=== PATIENT | male | born 1965 | race Caucasian/White ===

== ENCOUNTER 2018-11-01 18:56 | Observation (INO) | payer BC, OTHER ==
[2018-11-01 19:25] VITALS: BMI 38.5
--- NOTE | 2018-11-01 19:27 | PDOC ---
Rapid Medical Evaluation Chief Complaint: Alcohol intoxication Time Seen by Provider: 11/01/18 19:25 Medical Evaluation: Vital Signs Temp Pulse Resp BP Pulse Ox 97.5 F L 112 H 20 181/107 H 98 11/01/18 19:22 11/01/18 19:22 11/01/18 19:22 11/01/18 19:22 11/01/18 19:22 11/01/18 19:25 Pt c/o: etoh intox,wants detox, hx htn on no meds Pt on brief exam: elevated bp, intoxicated, verbally abusive Pt ordered for: iv , comp comp, mag, lipase, alcohol, ua, drug tox Pt to proceed to the ED Discharge Disposition - Diagnosis Alcohol abuse - Referrals - Patient Instructions - Post Discharge Activity
[2018-11-01] MEDS ORDERED: LORazepam 1 MG TABLET PO ONE (19:53)
--- NOTE | 2018-11-01 20:02 | PDOC ---
History of Present Illness - General Chief Complaint: Alcohol intoxication Stated Complaint: DETOX Time Seen by Provider: 11/01/18 19:25 History Source: Patient Exam Limitations: No Limitations - History of Present Illness Initial Comments: 11/01/18 19:52 53 year old man with a history chronic, back stanford pain, htn, HLD, gout possible schizophrenia and bipolar disorder and thought to be intoxicated who presents with sister from home, who reported to her that he wanted to go to detox. The patient was released from [facility] this AM, reports he drank alcohol and used marijuana and called his sister. The patient's sister is unsure what his usual medications are and does not live with the patient. She reports that the patient has been acting erratically for 2-3 months. No further history is provided. The patient is verbally abusive, spitting and not engaging in conversation. Is unable to endorse hallucinations, suicidal or homocidal ideation. Prior on and off substance abuse including cocaine. called for collateral, however does know patient's medical history and recently put a restraining order on the patient, but will bring medications to the patient's sister. Meds: venlafaxine. divalproex, d-amphetamine, doxepin, quetiapine PMHX: as in HPI PSHX: splenectomy Past History - Past Medical History Allergies/Adverse Reactions: Allergies Allergy/AdvReac Type Severity Reaction Status Date / Time No Known Allergies Allergy Verified 11/01/18 20:25 Home Medications: Ambulatory Orders NK [No Known Home Medication] 11/01/18 - Suicide/Smoking/Psychosocial Hx Smoking History: Unknown if ever smoked Hx Alcohol Use: Yes (Daily) Drug/Substance Use Hx: Yes (cocaine) Review of Systems - Review of Systems Able to Perform ROS?: Yes Is the patient limited Setswana proficient: No Constitutional: No: Chills, Diaphoresis, Fever HEENTM: No: Blurred Vision, Tinnitus Respiratory: No: Cough, Orthopnea, Shortness of Breath Cardiac (ROS): No: Chest Pain, Lightheadedness, Palpitations, Syncope *Physical Exam - Vital Signs Last Vital Signs Temp Pulse Resp BP Pulse Ox 97.5 F L 112 H 20 181/107 H 98 11/01/18 19:22 11/01/18 19:22 11/01/18 19:22 11/01/18 19:22 11/01/18 19:22 - Physical Exam Comments: 11/01/18 23:19 GENERAL: agitated, verbally abuse, no obvious signs of trauma, exam limited 2/ safety concern HEAD: normocephalic, atraumatic EYES: EOMI, sclera anicteric, conjunctiva clear ENT: oropharynx clear without exudates. Moist mucosa NECK: Normal ROM, supple EXTREMITIES : Normal inspection, Normal range of motion, no edema. No clubbing or cyanosis. NEUROLOGICAL: Cranial nerves II through XII grossly intact. Normal speech, no focal sensorimotor deficits SKIN: Warm, Dry, normal turgor, no rashes or lesions noted Moderate Sedation - Procedure Monitoring Vital Signs: Procedure Monitoring Vital Signs Temperature 97.5 F L 11/01/18 19:22 Pulse Rate 112 H 11/01/18 19:22 Respiratory Rate 20 11/01/18 19:22 Blood Pressure 181/107 H 11/01/18 19:22 O2 Sat by Pulse Oximetry (%) 98 11/01/18 19:22 ED Treatment Course - LABORATORY CBC & Chemistry Diagram: 11/01/18 22:07 11/01/18 22:07 Medical Decision Making - Medical Decision Making 11/01/18 23:20 53 year old man with a history htn, HLD, gout possible schizophrenia and bipolar disorder and thought to be intoxicated who presents with sister from home, who reported to her that he wanted to go to detox. The patient was released from [facility] this AM, reports he drank alcohol and used marijuana and called his sister. The patient's sister is unsure what his usual medications are and does not live with the patient. She reports that the patient has been acting erratically for 2-3 months. No further history is provided. The patient is verbally abusive, spitting and not engaging in conversation. Is unable to endorse hallucinations, suicidal or homocidal ideation. ED Course: consider alcohol intox vs substance abuse vs acute psychosis Patient verbally abusive and knocking down hospital supplies Psychiatry contacted, Dr. Cevallos, pending call back ativan 2 given without effect benadryl 50, haldol 5 4 point restraints placed 11/01/18 23:29 blood alcohol 177, likely patient with psychotic episode underlying 11/01/18 23:44 will dose quetiapine home meds Likely the patient need observation admission until psychiatry can evaluate patient. Needs 1:1 and repeat dosing for agitation. 11/02/18 01:57 Patient signed out to resident Dr. Jones *DC/Admit/Observation/Transfer Diagnosis at time of Disposition: Alcohol abuse, Psychosis - Discharge Dispostion Condition at time of disposition: Stable Decision to Admit order: Yes - Referrals Referrals: Brit Russell MD [Primary Care Provider] - - Patient Instructions - Post Discharge Activity
[2018-11-01] MEDS ORDERED: LORazepam 2 MG/ML SDV VIAL ONE (20:25)
[2018-11-01] MEDS ORDERED: HALOPERIDOL LACTATE 5 MG/ML IM ONE (20:51)
[2018-11-01] MEDS ORDERED: HALOPERIDOL LACTATE 5 MG/ML ONE (21:20)
[2018-11-01 22:38] LABS: BASO % 0.8 % (0-2.0); EOS % 0.5 % (0-4.5); HEMATOCRIT 39.8 % (35.4-49); HEMOGLOBIN 13.6 GM/dL (11.7-16.9); LYMPH % 37.1 % (8-40); MCH 31.6 pg (25.7-33.7); MCHC 34.1 g/dl (32.0-35.9); MEAN CELL VOLUME 92.7 fl (80-96); MEAN PLT VOLUME 8.4 fl (7.5-11.1); MONO % 7.1 % (3.8-10.2); NEUT % 54.5 % (42.8-82.8); PLATELET COUNT 260 K/MM3 (134-434); RBC 4.29 M/mm3 (4.00-5.60); RDW 14.7 % (11.9-15.9); WHITE BLOOD COUNT 8.9 K/mm3 (4.0-10.0)
--- NOTE | 2018-11-01 23:06 | PDOC ---
Attending Attestation - HPI HPI: 11/01/18 23:10 The patient is a 53 year old male with a PMH of schizophrenia, bipolar, gout, HTN, and HLD presents to the ER with increased agitation over the past 2 months. As per the sister at bedside, the patient was released from [facility] this morning and admits to EtOH and marijuana use this morning. Patient is not answering questions appropriately in the ER and is not providing further information. <Heidi Pope - Last Filed: 11/01/18 23:10> - Resident Resident Name: Naina Sims - ED Attending Attestation I have performed the following: I have examined & evaluated the patient, The case was reviewed & discussed with the resident, I agree w/resident's findings & plan, Exceptions are as noted - Physicial Exam PE: 11/02/18 01:07 pt awake, agitated, verbally and physically abusive; spitting at staff nc, atr pupils: dialted, reactive, eomi mmm neck is supple cta rrr abd-soft, nt, + luq scar (well healed) no extr edema/deform - Medical Decision Making 11/02/18 01:09 pt is an agitated 53 y/o male with hx/o Polysubstance abuse, schizophrenia, bipolar disorder who is noncompliant with his medication regimen presents to the ER with worsening agitation over the past several weeks to months. Patient was recently released from [facility]. Patient's psychiatrist refuses to see the patient any longer due to verbal insults. In the ER, patient is acutely agitated , violent and verbally abusive to staff, spitting at the nurses and security staff. Attempts at verbal intervention failed and patient required chemical sedation with Haldol, Ativan and Benadryl. EKG revealed no evidence of acute ischemia. CBC/CMP within normal limit. Awaiting drug screen. Will consult psychiatry. Will place in ED opts currently. <Clark Duff - Last Filed: 11/02/18 01:14>
[2018-11-01 23:11] LABS: ALBUMIN 3.4 g/dl (3.4-5.0); ALK PHOS 78 U/L (45-117); ANION GAP 8 MMOL/L (8-16); BILIRUBIN,TOTAL 0.5 mg/dL (0.2-1); BLOOD UREA NITROGEN 9 mg/dL (7-18); CALCIUM 8.6 mg/dL (8.5-10.1); CHLORIDE 101 mmol/L (98-107); CO2 27 mmol/L (21-32); CREATININE 0.7 mg/dL (0.55-1.3); GLUCOSE,RANDOM 98 mg/dL (74-106); LIPASE 120 U/L (73-393); POTASSIUM 3.3 mmol/L (3.5-5.1); SGOT/AST 39 U/L (15-37); SGPT/ALT 31 U/L (13-61); SODIUM 136 mmol/L (136-145)
[2018-11-01] MEDS ORDERED: QUEtiapine FUMARATE 200 MG TABLET PO ONE (23:35)
[2018-11-01] MEDS ORDERED: QUEtiapine FUMARATE 100 MG TABLET (FP) PO ONE (23:45)
[2018-11-02] MEDS ORDERED: QUEtiapine FUMARATE 100 MG TABLET (FP) ONE (00:10)
[2018-11-02 00:46] LABS: URINE APPEARANCE SLCLOUDY; URINE BILIRUBIN NEGATIVE (<2.0 mg/dL); URINE COLOR YELLOW; URINE GLUCOSE (UA) NEGATIVE (NEGATIVE); URINE KETONE NEGATIVE (NEGATIVE); URINE LEUK ESTERASE NEGATIVE (NEGATIVE); URINE NITRITE NEGATIVE (NEGATIVE); URINE PROTEIN 1+ (NEGATIVE); URINE UROBILINOGEN NEGATIVE mg/dL (0.2-1.0)
[2018-11-02 01:07] LABS: URINE HYALINE CAST 4 /lpf; URINE MUCUS RARE
[2018-11-02] MEDS ORDERED: FOLIC ACID INJECTION - 1 MG, THIAMINE HCL 100 MG, MULTIVIT INJECTION ADULT 10 ML in SOD... IVPB ONE (01:31)
[2018-11-02] MEDS ORDERED: chlordiazePOXIDE HCL 25 MG CAPSULE PO PRN (01:31)
--- NOTE | 2018-11-02 01:34 | HP ---
CHIEF COMPLAINT: brought in by sister for combative behavior PCP: Unknown HISTORY OF PRESENT ILLNESS: 53M w/ pmhx of HTN, HLD, gout, multiple unspecified psychiatric illnesses was brought to the ED by his sister due to worsening combative, aggressive behavior. Upon arrival, pt was seen aggressive necessitating 4 point restraints as well as restraints by multiple people. Per his sister, pt was being held in retirement for 1.5 days after his had called the police on him due to his worsening aggressive and abusive behavior. As a result, the had obtained a restraining order against the patient. Complete history was obtained by pt's sister as pt was sedated upon exam. 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 He currently lives in a mother/ daughter home with his and kids, as well as both of his parents, however because of the restraining order, he was unable to return home after leaving retirement. Pt has been on multiple psychiatric medications (bags of pill bottles brought in by his ), but seems to be non-compliant with all of his medications. Of note, he has been to 3 different psychiatrists in the past with no improvement due to his non-compliance. He also has a history of alcohol, cocaine, marijuana, and opioid abuse. ER course was notable for: (1) K+ 3.3, U/A 1+ Pro, Utox +Benzos (2) Ativan 2 mg IM, Benadryl 50 mg IM, Haldol 5 mg IM, Seroquel 200 mg PO, Psych consult (3) Recent Travel: Denies PAST MEDICAL HISTORY: HTN HLD Gout ? Schizophrenia ? Bipolar d/o ? Atrial fibrillation PAST SURGICAL HISTORY: Splenectomy Social History: Smoking: Denies Alcohol: binge drinker Drugs: uses cocaine, marijuana Family History: Denies Allergies No Known Allergies Allergy (Verified 11/01/18 20:25) HOME MEDICATIONS: Home Medications Medication Instructions Recorded NK [No Known Home Medication] 11/01/18 REVIEW OF SYSTEMS Unable to obtain PHYSICAL EXAMINATION Vital Signs - 24 hr 11/01/18 19:22 Temperature 97.5 F L Pulse Rate 112 H Respiratory 20 Rate Blood Pressure 181/107 H O2 Sat by Pulse 98 Oximetry (%) Unable to obtain. Laboratory Results - last 24 hr 11/01/18 11/01/18 11/01/18 22:07 22:07 22:07 WBC 8.9 RBC 4.29 Hgb 13.6 Hct 39.8 MCV 92.7 MCH 31.6 MCHC 34.1 RDW 14.7 Plt Count 260 MPV 8.4 Absolute Neuts (auto) 4.9 Neutrophils % 54.5 Lymphocytes % 37.1 Monocytes % 7.1 Eosinophils % 0.5 Basophils % 0.8 Nucleated RBC % 0 Sodium 136 Potassium 3.3 L Chloride 101 Carbon Dioxide 27 Anion Gap 8 BUN 9 Creatinine 0.7 Creat Clearance w eGFR > 60 Random Glucose 98 Calcium 8.6 Total Bilirubin 0.5 AST 39 H ALT 31 Alkaline Phosphatase 78 Total Protein 7.0 Albumin 3.4 Lipase 120 Urine Color Urine Appearance Urine pH Ur Specific [place] Urine Protein Urine Glucose (UA) Urine Ketones Urine Blood Urine Nitrite Urine Bilirubin Urine Urobilinogen Ur Leukocyte Esterase Urine WBC (Auto) Urine RBC (Auto) Hyaline Casts Urine Mucus Salicylates < 1.7 L Cancelled Acetaminophen < 2.0 L Cancelled Alcohol, Quantitative 177.3 H 11/01/18 23:50 WBC RBC Hgb Hct MCV MCH MCHC RDW Plt Count MPV Absolute Neuts (auto) Neutrophils % Lymphocytes % Monocytes % Eosinophils % Basophils % Nucleated RBC % Sodium Potassium Chloride Carbon Dioxide Anion Gap BUN Creatinine Creat Clearance w eGFR Random Glucose Calcium Total Bilirubin AST ALT Alkaline Phosphatase Total Protein Albumin Lipase Urine Color Yellow Urine Appearance Slcloudy Urine pH 6.0 Ur Specific [place] 1.011 Urine Protein 1+ H Urine Glucose (UA) Negative Urine Ketones Negative Urine Blood Negative Urine Nitrite Negative Urine Bilirubin Negative Urine Urobilinogen Negative Ur Leukocyte Esterase Negative Urine WBC (Auto) 1 Urine RBC (Auto) 5 Hyaline Casts 4 Urine Mucus Rare Salicylates Acetaminophen Alcohol, Quantitative CONSULT Psych- Dr. Cevallos ASSESSMENT/PLAN: 53M w/ pmhx of HTN, HLD, gout, ? multiple psychiatric illnesses presented to the ED with aggressive behavior, evaluated for acute psychosis. #Acute psychosis; 2/2 alcohol intoxication with underlying multiple psychiatric illnesses -Ativan, Benadryl, Haldol, Seroquel given in ED -Utox +Alc 177 -4 point restraints -Psych consult ordered; await recs #Hypokalemia; Initial 3.3 -Banana bag ordered -replete PRN; recheck BMP #Hx of Alcohol abuse; Alc level 177.3 -Ativan 2 Q4H PRN given for acute withdrawal -monitor for signs of alcohol withdrawal #Uncontrolled HTN; may be 2/2 to acute psychotic episode, with extreme agitation as patient is not on anti-hypertensive meds -Will recheck once stable and treat accordingly if BP remains elevated #Obesity -Weight loss counseling #Ppx -Lovenox 40 mg SQ QD #FEN -banana bag -recheck lytes in AM (K+) -Regular diet dispo -full code -obs Visit type - Emergency Visit Emergency Visit: Yes ED Registration Date: 11/02/18 Care time: The patient presented to the Emergency Department on the above date and was hospitalized for further evaluation of their emergent condition. - New Patient This patient is new to me today: Yes Date on this admission: 11/02/18 - Critical Care Critical Care patient: No
[2018-11-02 03:39] LABS: COCAINE, UR NEGATIVE ng/ml (CUTOFF=300); OPIATES, URI NEGATIVE ng/ml (CUTOFF=300); PHENCYCLIDINE,URINE NEGATIVE ng/ml (CUTOFF=25); URINE AMPHETAMINES NEGATIVE ng/ml (CUTOFF=500); URINE BARBITURATES NEGATIVE ng/ml (CUTOFF=200)
--- NOTE | 2018-11-02 03:51 | PN ---
Teaching Attending Note Name of Resident: Giovanna Moctezuma ATTENDING PHYSICIAN STATEMENT I saw and evaluated the patient. I reviewed the resident's note and discussed the case with the resident. I agree with the resident's findings and plan as documented. SUBJECTIVE: Patient is a 53 year old man with a history chronic, back stan[place] pain, htn, HLD, gout possible schizophrenia and bipolar disorder and thought to be intoxicated who presents with sister from home, who reported to her that he wanted to go to detox. [facility], reports he drank alcohol and used marijuana and called his sister. The patient's sister is unsure what his usual medications are and does not live with the patient. She reports that the patient has been acting erratically for 2-3 months. No further history is provided. The patient is verbally abusive, spitting and not engaging in conversation. Unable to establish if he has hallucinations, suicidal or homocidal ideation. OBJECTIVE: Alert, agitated and combative Vital Signs Period Temp Pulse Resp BP Sys/Gonzalez Pulse Ox Last 24 Hr 97.5 F 112 20 181/107 98 Patient was very combative and refused physical exam. Current Medications Generic Name Dose Route Start Last Admin Trade Name Freq PRN Reason Stop Dose Admin Chlordiazepoxide HCl 50 mg 11/02/18 05:00 Librium - PO 11/02/18 23:01 [id number] AZAR Chlordiazepoxide HCl 25 mg 11/03/18 05:00 Librium - PO 11/03/18 23:01 [id number] AZAR Chlordiazepoxide HCl 15 mg 11/04/18 05:00 Librium - PO 11/04/18 23:01 [id number] AZAR Chlordiazepoxide HCl 25 mg 11/02/18 01:31 Librium - PO 11/05/18 01:30 Q4H PRN WITHDRAWAL(CONT SUBST) Chlordiazepoxide HCl 10 mg 11/05/18 05:00 Librium - PO 11/05/18 23:01 [id number] AZAR Heparin Sodium (Porcine) 5,000 unit 11/02/18 06:00 Heparin - SQ TID AZAR Folic Acid 1 mg/ Thiamine HCl 1,000 mls @ 125 mls/hr 11/02/18 01:31 100 mg/ Multivitamins/Minerals IVPB 11/02/18 09:30 10 ml/ Sodium Chloride ONCE ONE Home Medications Medication Instructions Recorded NK [No Known Home Medication] 11/01/18 Abnormal Lab Results 11/01/18 11/01/18 22:07 23:50 Potassium 3.3 L AST 39 H Urine Protein 1+ H Salicylates < 1.7 L Acetaminophen < 2.0 L Alcohol, Quantitative 177.3 H ASSESSMENT AND PLAN: 1. Acute Psychosis - Polysubstance abuse and acute intoxication (alcohol and illicit drugs) likely superimposed on underlying psychiatric illness. Got haldol , seroquel, ativan and librum in the ER. Currently on one-to-one monitoring awaiting psychiatrist evaluation. Hypokalemia is unexplained. Check Mg+ level and give PO KCL. 2. Obesity - Will provide patient all the necessary assistance, counseling and positive reinforcement to facilitate weight loss. Consult heel coverer machine operator. 3. Alcohol and Polysubstance abuse - Implement [facility] alcohol withdrawal protocol, fall and aspiration precautions. Treat with thiamine and folic acid and monitor electrolytes (Ca,Mg,K,P). 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 4. Uncontrolled Hypertension - Will recheck BP once stable and treat accordingly if still high. Nonpharmacologic measures to control hypertension like weight loss, salt restriction and exercise discussed. 5. DVT prophylaxis - Lovenox 40 mg SQ q 24 hours. 6. Advance directives - Full code
[2018-11-02 03:55] LABS: URINE BENZODIAZEPINES POSITIVE ng/ml (CUTOFF=200)
[2018-11-02] MEDS ORDERED: LORazepam 2 MG/ML SDV VIAL IVPUSH PRN (05:59)
[2018-11-02] MEDS ORDERED: HEPARIN NA (PORCINE) 5,000 UNITS/ML 1ML VIAL SQ SCH (06:00)
[2018-11-02] MEDS: chlordiazePOXIDE HCL 25 MG CAPSULE PO SCH ×2 (06:24→06:25)
[2018-11-02] MEDS: ENOXAPARIN NA (PORCINE) 40 MG/0.4 ML DISP.SYRIN SQ SCH (11:20)
[2018-11-02] MEDS ORDERED: chlordiazePOXIDE HCL 25 MG CAPSULE ONE ×2 (13:02→19:16)
[2018-11-02] MEDS ORDERED: chlordiazePOXIDE HCL 25 MG CAPSULE PO ONE ×2 (13:02→19:10)
--- NOTE | 2018-11-02 15:15 | PDOC ---
*Physical Exam - Vital Signs Last Vital Signs Temp Pulse Resp BP Pulse Ox 97.5 F L 112 H 18 141/85 96 11/02/18 11:50 11/02/18 13:05 11/02/18 13:05 11/02/18 13:05 11/02/18 13:05 ED Treatment Course - LABORATORY CBC & Chemistry Diagram: 11/01/18 22:07 11/01/18 22:07 - ADDITIONAL ORDERS Additional order review: Laboratory Results 11/01/18 23:50 Opiates Screen Negative Methadone Screen No Result Required. Barbiturate Screen Negative Phencyclidine Screen Negative Ur Amphetamines Screen Negative MDMA (Ecstasy) Screen Negative Benzodiazepines Screen Positive A* Cocaine Screen Negative U Marijuana (THC) Screen Negative 11/01/18 22:07 RBC 4.29 MCV 92.7 MCHC 34.1 RDW 14.7 MPV 8.4 Neutrophils % 54.5 Lymphocytes % 37.1 Monocytes % 7.1 Eosinophils % 0.5 Basophils % 0.8 - Medications Given in the ED: ED Medications Discontinued Medications Generic Name Dose Route Start Last Admin Trade Name Aram PRN Reason Stop Dose Admin Chlordiazepoxide HCl 50 mg 11/02/18 05:00 11/02/18 06:25 Librium - PO 11/02/18 23:01 Not Given [id number] AZAR Chlordiazepoxide HCl 50 mg 11/02/18 13:02 11/02/18 13:04 Librium - PO 11/02/18 13:03 50 mg ONCE ONE Administration Diphenhydramine HCl 50 mg 11/01/18 20:52 11/01/18 21:22 Benadryl Injection - IM 11/01/18 20:53 50 mg ONCE ONE Administration Haloperidol 5 mg 11/01/18 20:51 11/01/18 21:22 Haldol Injection (Fast Acting) - IM 11/01/18 20:52 5 mg ONCE ONE Administration Folic Acid 1 mg/ Thiamine HCl 1,000 mls @ 125 mls/hr 11/02/18 01:31 11/02/18 04:05 100 mg/ Multivitamins/Minerals IVPB 11/02/18 09:30 Not Given 10 ml/ Sodium Chloride ONCE ONE Lorazepam 2 mg 11/01/18 19:53 11/01/18 20:38 Ativan - PO 11/01/18 19:54 Not Given ONCE ONE Lorazepam 2 mg 11/01/18 20:35 11/01/18 20:38 Ativan Injection - IM 11/01/18 20:36 2 mg ONCE ONE Administration Quetiapine Fumarate 200 mg 11/01/18 23:45 11/02/18 00:11 Seroquel - PO 11/01/18 23:46 200 mg ONCE ONE Administration Medical Decision Making - Medical Decision Making 53M w/ pmhx of HTN, HLD, gout, multiple unspecified psychiatric illnesses was brought to the ED by his sister due to worsening combative, aggressive behavior. Pt was sent to [facility] for worsening aggressive and abusive behavior. had obtained a restraining order against the patient. Pt has been on psychiatic meds but has been non-compliant with all of his medications. History of cocaine, marijuana, alcohol use. Waiting for Dr. Cevallos to evaluate pt. Will need transfer to psychiatric facility. 11/02/18 17:[address] Cevallos, pt needs to be transferred to psychiatric facility for further management. Pt needs detox but not stable for outpt detox at [facility]. Pt dx with schizoaffective disorder, polysubstance use, acute psychosis. Pt is medically cleared and cleared by Dr. Cevallos for transfer. Best Torres called [facility] [place] for psychiatric inpt bed, there are beds available. Called again 1 hour later (4:15) on status of transfer. [facility] [place] stated they received the paperwork and transfer is pending. Called again just now. Was told that psychiatrist is going through the paperwork. May be "a while". PT signed out to Dr. Sims pending acceptance of transfer. *DC/Admit/Observation/Transfer Diagnosis at time of Disposition: Alcohol abuse, Cocaine abuse Psychosis Qualifiers: Psychosis type: unspecified psychosis type Qualified Code(s): F29 - Unspecified psychosis not due to a substance or known physiological condition - Discharge Dispostion Disposition: TRANSFER ACUTE CARE/OTHER HOSP Condition at time of disposition: Stable - Referrals - Patient Instructions - Post Discharge Activity
--- NOTE | 2018-11-02 15:17 | CON.PSY ---
Psychiatry Consult Chief Complaint: Patient came to er for Psych eval, brought by family. Apparantly mad had thfretened his and kids, Police were called and there is an order of protection against him. Patient hasca long history of Sciziaffective Disotrder and been on many many Psych merds from his pvt Psych lauren barry. Patient is agressive and Paranoid and thretening tyo kill himself and others. Symptoms: reports: Aggressivity, Impulsivity, Delusions, Paranoia - Previous Psychiatric Treatment Outpatient: Less than 6 mos ago Inpatient: One prior admission - Previous Substance Abuse Treatment Outpatient: Less than 6 mos ago Inpatient: 2 or more prior admissions - Reason for Previous Treatment Reason for Previous Treatment: Psychotic Episode, Alcohol Abuse, Cocaine - Current Medications Current Medications: Active Medications Enoxaparin Sodium (Lovenox -) 40 mg SQ DAILY AZAR Last Admin: 11/02/18 11:20 Dose: Not Given Lorazepam (Ativan Injection -) 2 mg IVPUSH Q4H PRN PRN Reason: AGITATION - Allergies Allergies: Allergies Allergy/AdvReac Type Severity Reaction Status Date / Time No Known Allergies Allergy Verified 11/01/18 20:25 - Current Living Status Usual Living Arrangement: With Parent - Current Mental Status Evaluation Appearance: Disheveled Attitude: Belligerent - Affect Affect: Expansive Appropriateness: Not Appropriate - Mood Mood: Angry - Speech/Language Expressive: Coherent - Psychomotor Activity Psychomotor Activity: Agitated - Thought Process Thought Process: Circumstantial - Thought Content Hallucinations: Absent Delusions: Present Type: Persectory - Self Perception Self Perception: No Impairment - Cognition Attention: Alert Orientation: Time Memory, Immediate Recall: Intact Memory, Short Term: 2/3 Memory, Remote with Promptin/3 - Concentration Serial Sevens Intact: No Simple Calculations Intact: No - Abstraction Proverb Interpretation: Impaired Judgement: Severely Impaired - Suicidal Ideation Suicidal Ideation: No - Homicidal Ideation Homicidal Ideation: Yes (made thretening statements toward family members.) Assessment/Plan 1) Admit to In Patient Psych on a 2 PC to stabilize Mental Status.
--- NOTE | 2018-11-02 16:38 | EKG ---
Test Reason : Blood Pressure : / mmHG Vent. Rate : 102 BPM Atrial Rate : 102 BPM P-R Int : 148 ms QRS Dur : 084 ms QT Int : 336 ms P-R-T Axes : 025 021 014 degrees QTc Int : 437 ms SINUS TACHYCARDIA LOW VOLTAGE QRS BORDERLINE ECG NO PREVIOUS ECGS AVAILABLE Confirmed by Connie Yin ([id number]) on 11/02/2018 4:38:12 PM Referred By: Confirmed By:Connie Yin
[2018-11-02] MEDS ORDERED: HALOPERIDOL LACTATE 5 MG/ML IM ONE (20:51)
[2018-11-02] MEDS ORDERED: LORazepam 2 MG/ML SDV VIAL ONE (20:52)
[2018-11-02] MEDS ORDERED: HALOPERIDOL LACTATE 5 MG/ML ONE (20:52)
[2018-11-02 23:48] LABS: ALBUMIN 3.3 g/dl (3.4-5.0); ALK PHOS 73 U/L (45-117); ANION GAP 7 MMOL/L (8-16); BILIRUBIN,TOTAL 0.6 mg/dL (0.2-1); BLOOD UREA NITROGEN 11 mg/dL (7-18); CALCIUM 8.3 mg/dL (8.5-10.1); CHLORIDE 103 mmol/L (98-107); CO2 28 mmol/L (21-32); CREATININE 0.9 mg/dL (0.55-1.3); GLUCOSE,RANDOM 137 mg/dL (74-106); POTASSIUM 3.4 mmol/L (3.5-5.1); SGOT/AST 46 U/L (15-37); SGPT/ALT 34 U/L (13-61); SODIUM 138 mmol/L (136-145); TOT PROT 6.6 g/dl (6.4-8.2)
--- NOTE | 2018-11-03 02:02 | PDOC ---
*Physical Exam - Vital Signs Last Vital Signs Temp Pulse Resp BP Pulse Ox 98.3 F 105 H 18 110/56 L 96 11/02/18 23:22 11/02/18 23:22 11/02/18 23:22 11/02/18 23:22 11/02/18 23:22 ED Treatment Course - LABORATORY CBC & Chemistry Diagram: 11/03/18 05:16 11/03/18 05:16 - ADDITIONAL ORDERS Additional order review: 11/01/18 22:07 RBC 4.29 MCV 92.7 MCHC 34.1 RDW 14.7 MPV 8.4 Neutrophils % 54.5 Lymphocytes % 37.1 Monocytes % 7.1 Eosinophils % 0.5 Basophils % 0.8 - Medications Given in the ED: ED Medications Discontinued Medications Generic Name Dose Route Start Last Admin Trade Name Freq PRN Reason Stop Dose Admin Chlordiazepoxide HCl 50 mg 11/02/18 05:00 11/02/18 06:25 Librium - PO 11/02/18 23:01 Not Given [id number] AZAR Chlordiazepoxide HCl 50 mg 11/02/18 13:02 11/02/18 13:04 Librium - PO 11/02/18 13:03 50 mg ONCE ONE Administration Chlordiazepoxide HCl 50 mg 11/02/18 19:10 11/02/18 19:18 Librium - PO 11/02/18 19:11 50 mg ONCE ONE Administration Diphenhydramine HCl 50 mg 11/01/18 20:52 11/01/18 21:22 Benadryl Injection - IM 11/01/18 20:53 50 mg ONCE ONE Administration Haloperidol 5 mg 11/01/18 20:51 11/01/18 21:22 Haldol Injection (Fast Acting) - IM 11/01/18 20:52 5 mg ONCE ONE Administration Haloperidol 5 mg 11/02/18 20:51 11/02/18 20:53 Haldol Injection (Fast Acting) - IM 11/02/18 20:52 5 mg ONCE ONE Administration Folic Acid 1 mg/ Thiamine HCl 1,000 mls @ 125 mls/hr 11/02/18 01:31 11/02/18 04:05 100 mg/ Multivitamins/Minerals IVPB 11/02/18 09:30 Not Given 10 ml/ Sodium Chloride ONCE ONE Lorazepam 2 mg 11/01/18 19:53 02/01/19 20:38 Ativan - PO 11/01/18 19:54 Not Given ONCE ONE Lorazepam 2 mg 11/01/18 20:35 11/01/18 20:38 Ativan Injection - IM 11/01/18 20:36 2 mg ONCE ONE Administration Lorazepam 2 mg 11/02/18 20:50 11/02/18 20:53 Ativan Injection - IM 11/02/18 20:51 2 mg ONCE ONE Administration Quetiapine Fumarate 200 mg 11/01/18 23:45 11/02/18 00:11 Seroquel - PO 11/01/18 23:46 200 mg ONCE ONE Administration Medical Decision Making - Medical Decision Making 11/03/18 02:00 Patient signed out by Dr. Martin. Spoke with [facility] who is concerned about K of 3.4 and wants K to be repleted prior to transfer and notes that even if K is wnl transfer is unlikely to occur until the morning. In light of this will let patient rest overnight and will repeat labs and EKG in the morning. pending transfer. 11/03/18 06:05 Overnight patient exhibited alcohol withdrawal symptoms, dosed librium and banana bag plan to transfer in AM. *DC/Admit/Observation/Transfer Diagnosis at time of Disposition: Alcohol abuse, Cocaine abuse Psychosis Qualifiers: Psychosis type: unspecified psychosis type Qualified Code(s): F29 - Unspecified psychosis not due to a substance or known physiological condition - Discharge Dispostion Disposition: TRANSFER ACUTE CARE/OTHER HOSP Condition at time of disposition: Stable - Referrals - Patient Instructions - Post Discharge Activity
[2018-11-03] MEDS ORDERED: LORazepam 2 MG/ML SDV VIAL ONE ×2 (04:39→21:44)
[2018-11-03] MEDS ORDERED: chlordiazePOXIDE HCL 25 MG CAPSULE PO ONE ×2 (04:41→09:49)
[2018-11-03] MEDS ORDERED: FOLIC ACID INJECTION - 1 MG, THIAMINE HCL 100 MG, MULTIVIT INJECTION ADULT 10 ML in SOD... IVPB ONE (04:43)
[2018-11-03] MEDS ORDERED: chlordiazePOXIDE HCL 25 MG CAPSULE PO SCH (05:00)
[2018-11-03] MEDS ORDERED: chlordiazePOXIDE HCL 25 MG CAPSULE ONE ×2 (05:24→09:56)
[2018-11-03 05:30] LABS: HEMATOCRIT 39.1 % (35.4-49); HEMOGLOBIN 13.3 GM/dL (11.7-16.9); MCH 31.2 pg (25.7-33.7); MCHC 33.9 g/dl (32.0-35.9); MEAN CELL VOLUME 92.1 fl (80-96); MEAN PLT VOLUME 7.9 fl (7.5-11.1); PLATELET COUNT 270 K/MM3 (134-434); RBC 4.25 M/mm3 (4.00-5.60); RDW 14.7 % (11.9-15.9); WHITE BLOOD COUNT 7.4 K/mm3 (4.0-10.0)
[2018-11-03 06:04] LABS: ALBUMIN 3.2 g/dl (3.4-5.0); ALK PHOS 69 U/L (45-117); ANION GAP 9 MMOL/L (8-16); BILIRUBIN,TOTAL 0.4 mg/dL (0.2-1); BLOOD UREA NITROGEN 12 mg/dL (7-18); CHLORIDE 105 mmol/L (98-107); CO2 27 mmol/L (21-32); CREATININE 0.7 mg/dL (0.55-1.3); GLUCOSE,RANDOM 110 mg/dL (74-106); POTASSIUM 3.7 mmol/L (3.5-5.1); SGOT/AST 40 U/L (15-37); SGPT/ALT 34 U/L (13-61); SODIUM 141 mmol/L (136-145); TOT PROT 6.5 g/dl (6.4-8.2)
[2018-11-03] MEDS: ENOXAPARIN NA (PORCINE) 40 MG/0.4 ML DISP.SYRIN SQ SCH (09:54)
[2018-11-03] MEDS ORDERED: ENOXAPARIN NA (PORCINE) 40 MG/0.4 ML DISP.SYRIN SQ ONE (09:56)
--- NOTE | 2018-11-03 12:34 | PN ---
Progress Note (short form) - Note Progress Note: Psych follow up: patient continues to be paranoid and delusional and agitated. continues to make threatening statements about himself and family> Feels his psychiatrist is experimenting on him. displays poor insight and judgement. Plan: continue with 1:1 2) transfer to In patient Psych unit.
--- NOTE | 2018-11-03 15:35 | EKG ---
Test Reason : Blood Pressure : / mmHG Vent. Rate : 085 BPM Atrial Rate : 085 BPM P-R Int : 138 ms QRS Dur : 080 ms QT Int : 364 ms P-R-T Axes : 025 010 025 degrees QTc Int : 433 ms NORMAL SINUS RHYTHM NORMAL ECG WHEN COMPARED WITH ECG OF 01-NOV-2018 22:12, NO SIGNIFICANT CHANGE WAS FOUND Confirmed by BO ROJO MD ([id number]) on 11/03/2018 3:35:19 PM Referred By: Confirmed By:BO ROJO MD
--- NOTE | 2018-11-03 18:24 | PN ---
Physical Exam: SUBJECTIVE: Patient seen and examined. No acute overnight events. OBJECTIVE: Vital Signs Period Temp Pulse Resp BP Sys/Gonzalez Pulse Ox Last 24 Hr 98 F-98.3 F 80-105 16-18 110-149/56-92 96-98 Patient refused to be examined. Laboratory Results - last 24 hr 11/02/18 11/03/18 11/03/18 23:14 05:16 05:16 WBC 7.4 RBC 4.25 Hgb 13.3 Hct 39.1 MCV 92.1 MCH 31.2 MCHC 33.9 RDW 14.7 Plt Count 270 MPV 7.9 Sodium 138 141 Potassium 3.4 L 3.7 Chloride 103 105 Carbon Dioxide 28 27 Anion Gap 7 L 9 BUN 11 12 Creatinine 0.9 0.7 Creat Clearance w eGFR > 60 > 60 Random Glucose 137 H 110 H Calcium 8.3 L 9.0 Total Bilirubin 0.6 0.4 AST 46 H 40 H ALT 34 34 Alkaline Phosphatase 73 69 Total Protein 6.6 6.5 Albumin 3.3 L 3.2 L Active Medications Generic Name Dose Route Start Last Admin Trade Name Freq PRN Reason Stop Dose Admin Enoxaparin Sodium 40 mg 11/02/18 10:00 11/03/18 09:54 Lovenox - SQ 40 mg DAILY AZAR Administration Lorazepam 2 mg 11/02/18 05:59 Ativan Injection - IVPUSH Q4H PRN AGITATION ASSESSMENT/PLAN: 53M w/ pmhx of HTN, HLD, gout, ? multiple psychiatric illnesses presented to the ED with aggressive behavior, evaluated for acute psychosis. #Acute psychosis; 2/2 alcohol intoxication with underlying multiple psychiatric illnesses -Ativan, Benadryl, Haldol, Seroquel given in ED -Utox +Alc 177 -4 point restraints -Psych consult ordered. Recommendations appreciated. -patient continues to be paranoid and delusional and agitated. continues to make threatening statements about himself and family> Feels his psychiatrist is experimenting on him. displays poor insight and judgement. -continue with 1:1 -transfer to inpatient psych #Hypokalemia; K 3.7 -Banana bag given -replete PRN; recheck BMP #Hx of Alcohol abuse; Alc level 177.3 -Ativan 2 Q4H PRN given for acute withdrawal -monitor for signs of alcohol withdrawal #Uncontrolled HTN; may be 2/2 to acute psychotic episode, with extreme agitation as patient is not on anti-hypertensive meds -Will recheck once stable and treat accordingly if BP remains elevated #Obesity -Weight loss counseling #Ppx -Lovenox 40 mg SQ QD #FEN -banana bag -recheck lytes in AM (K+) -Regular diet dispo -full code -for transfer to In patient psych unit
--- NOTE | 2018-11-03 18:24 | PN ---
Teaching Attending Note Name of Resident: Anshul Pereyra ATTENDING PHYSICIAN STATEMENT I saw and evaluated the patient. I reviewed the resident's note and discussed the case with the resident. I agree with the resident's findings and plan as documented. SUBJECTIVE: Patient is lying in bed combative with aggressive behavior. OBJECTIVE: Vital Signs Temperature 98 F 11/03/18 13:00 Pulse Rate 80 11/03/18 13:00 Respiratory Rate 16 11/03/18 13:00 Blood Pressure 149/92 11/03/18 13:00 O2 Sat by Pulse Oximetry (%) 98 11/03/18 13:00 Patient refused physical exam. CBCD WBC 7.4 K/mm3 (4.0-10.0) 11/03/18 05:16 RBC 4.25 M/mm3 (4.00-5.60) 11/03/18 05:16 Hgb 13.3 GM/dL (11.7-16.9) 11/03/18 05:16 Hct 39.1 % (35.4-49) 11/03/18 05:16 MCV 92.1 fl (80-96) 11/03/18 05:16 MCHC 33.9 g/dl (32.0-35.9) 11/03/18 05:16 RDW 14.7 % (11.9-15.9) 11/03/18 05:16 Plt Count 270 K/MM3 (134-434) 11/03/18 05:16 MPV 7.9 fl (7.5-11.1) 11/03/18 05:16 CMP Sodium 141 mmol/L (136-145) 11/03/18 05:16 Potassium 3.7 mmol/L (3.5-5.1) 11/03/18 05:16 Chloride 105 mmol/L (98-107) 11/03/18 05:16 Carbon Dioxide 27 mmol/L (21-32) 11/03/18 05:16 Anion Gap 9 MMOL/L (8-16) 11/03/18 05:16 BUN 12 mg/dL (7-18) 11/03/18 05:16 Creatinine 0.7 mg/dL (0.55-1.3) 11/03/18 05:16 Creat Clearance w eGFR > 60 (>60) 11/03/18 05:16 Random Glucose 110 mg/dL (74-106) H 11/03/18 05:16 Calcium 9.0 mg/dL (8.5-10.1) 11/03/18 05:16 Total Bilirubin 0.4 mg/dL (0.2-1) 11/03/18 05:16 AST 40 U/L (15-37) H 11/03/18 05:16 ALT 34 U/L (13-61) 11/03/18 05:16 Alkaline Phosphatase 69 U/L (45-117) 11/03/18 05:16 Total Protein 6.5 g/dl (6.4-8.2) 11/03/18 05:16 Albumin 3.2 g/dl (3.4-5.0) L 11/03/18 05:16 Current Medications Generic Name Dose Route Start Last Admin Trade Name Freq PRN Reason Stop Dose Admin Enoxaparin Sodium 40 mg 11/02/18 10:00 11/03/18 09:54 Lovenox - SQ 40 mg DAILY AZAR Administration Lorazepam 2 mg 11/02/18 05:59 Ativan Injection - IVPUSH Q4H PRN AGITATION Home Medications Medication Instructions Recorded Allopurinol [Zyloprim -] 100 mg PO DAILY 11/02/18 Aspirin [ASA -] 81 mg PO DAILY 11/02/18 Atorvastatin Ca [Lipitor] 20 mg PO HS 11/02/18 Benztropine Mesylate 1 mg PO PRN 11/02/18 Clonazepam 0.5 mg PO DAILY 11/02/18 Cyclobenzaprine HCl 5 mg PO HS 11/02/18 D-Amphetamine Sulfate [DEXEDRINE 10 mg PO BID 11/02/18 SPANSULE (Nf) -] Divalproex [Depakote -] 500 mg PO TID 11/02/18 Doxepin HCl [Sinequan -] 25 mg PO HS 11/02/18 Lamotrigine [Lamictal -] 25 mg PO DAILY 11/02/18 Metoprolol Tartrate [Lopressor -] 50 mg PO BID 11/02/18 Pantoprazole Sodium [Protonix] 40 mg PO DAILY 11/02/18 Quetiapine Fumarate [Seroquel -] 200 mg PO HS 11/02/18 Tamsulosin HCl 0.4 mg PO DAILY 11/02/18 Venlafaxine HCl [Effexor -] 75 mg PO BID 11/02/18 ASSESSMENT AND PLAN: Patient is a 53 year old man with a PMHx of chronic, back [place] pain, htn, HLD, gout, schizoaffective disorder and bipolar disorder who presents with sister from home, who reported to her that he wanted to go to detox. The patient was released from [facility] ago who reports he drank alcohol and used marijuana and called his sister. She reports that the patient has been acting erratically for 2-3 months. The patient is verbally abusive, spitting and not engaging in conversation. # Acute Psychosis with acute intoxication and Polysubstance abuse . patient continues to be paranoid and delusional and agitated. continues to make threatening statements about himself and family, patient has a poor insight. Plan: continue with 1:1 waiting to transfer the patient to In patient Psych unit. DVt px: Lovenox
[2018-11-04] MEDS ORDERED: IBUPROFEN 400 MG TABLET (FP) PO ONE ×2 (00:41→00:43)
[2018-11-04] MEDS ORDERED: chlordiazePOXIDE HCL 25 MG CAPSULE PO STA (00:42)
[2018-11-04] MEDS ORDERED: chlordiazePOXIDE HCL 25 MG CAPSULE ONE ×2 (00:43→14:07)
[2018-11-04] MEDS ORDERED: QUEtiapine FUMARATE 200 MG TABLET PO ONE (00:46)
[2018-11-04] MEDS ORDERED: QUEtiapine FUMARATE 100 MG TABLET (FP) ONE (00:46)
[2018-11-04] MEDS ORDERED: HALOPERIDOL LACTATE 5 MG/ML IM ONE ×3 (03:23→04:21)
[2018-11-04] MEDS ORDERED: LORazepam 2 MG/ML SDV VIAL ONE ×5 (03:33→14:07)
[2018-11-04] MEDS ORDERED: HALOPERIDOL LACTATE 5 MG/ML ONE ×2 (03:33→04:30)
[2018-11-04] MEDS ORDERED: chlordiazePOXIDE 5 MG CAPSULE PO SCH (05:00)
[2018-11-04] MEDS ORDERED: MIDAZOLAM HCL 2 MG/2 ML SINGLE DOSE VIAL IVPUSH ONE (06:28)
--- NOTE | 2018-11-04 06:48 | PDOC ---
*Physical Exam - Vital Signs Last Vital Signs Temp Pulse Resp BP Pulse Ox 98.4 F 77 18 152/87 99 11/03/18 19:00 11/03/18 19:00 11/03/18 19:00 11/03/18 19:00 11/03/18 19:00 ED Treatment Course - LABORATORY CBC & Chemistry Diagram: 11/03/18 05:16 11/03/18 05:16 - ADDITIONAL ORDERS Additional order review: 11/01/18 22:07 RBC 4.29 MCV 92.7 MCHC 34.1 RDW 14.7 MPV 8.4 Neutrophils % 54.5 Lymphocytes % 37.1 Monocytes % 7.1 Eosinophils % 0.5 Basophils % 0.8 - Medications Given in the ED: ED Medications Discontinued Medications Generic Name Dose Route Start Last Admin Trade Name Freq PRN Reason Stop Dose Admin Chlordiazepoxide HCl 50 mg 11/02/18 05:00 11/02/18 06:25 Librium - PO 11/02/18 23:01 Not Given [id number] AZAR Chlordiazepoxide HCl 50 mg 11/02/18 13:02 11/02/18 13:04 Librium - PO 11/02/18 13:03 50 mg ONCE ONE Administration Chlordiazepoxide HCl 50 mg 11/02/18 19:10 11/02/18 19:18 Librium - PO 11/02/18 19:11 50 mg ONCE ONE Administration Chlordiazepoxide HCl 50 mg 11/03/18 04:41 11/03/18 04:48 Librium - PO 11/03/18 04:42 50 mg ONCE ONE Administration Chlordiazepoxide HCl 50 mg 11/03/18 09:49 11/03/18 09:53 Librium - PO 11/03/18 09:50 50 mg ONCE ONE Administration Chlordiazepoxide HCl 50 mg 11/04/18 00:42 11/04/18 00:50 Librium - PO 11/04/18 00:43 50 mg ONCE STA Administration Diphenhydramine HCl 50 mg 11/01/18 20:52 11/01/18 21:22 Benadryl Injection - IM 11/01/18 20:53 50 mg ONCE ONE Administration Diphenhydramine HCl 50 mg 11/04/18 04:00 11/04/18 04:10 Benadryl Injection - IM 11/04/18 04:01 50 mg ONCE ONE Administration Haloperidol 5 mg 11/01/18 20:51 11/01/18 21:22 Haldol Injection (Fast Acting) - IM 11/01/18 20:52 5 mg ONCE ONE Administration Haloperidol 5 mg 11/02/18 20:51 11/02/18 20:53 Haldol Injection (Fast Acting) - IM 11/02/18 20:52 5 mg ONCE ONE Administration Haloperidol 10 mg 11/04/18 03:23 11/04/18 04:35 Haldol Injection (Fast Acting) - IM 11/04/18 03:24 Not Given ONCE ONE Haloperidol 5 mg 11/04/18 03:24 11/04/18 03:36 Haldol Injection (Fast Acting) - IM 11/04/18 03:25 5 mg ONCE ONE Administration Haloperidol 5 mg 11/04/18 04:21 11/04/18 04:34 Haldol Injection (Fast Acting) - IM 11/04/18 04:22 5 mg ONCE ONE Administration Folic Acid 1 mg/ Thiamine HCl 1,000 mls @ 125 mls/hr 11/02/18 01:31 11/02/18 04:05 100 mg/ Multivitamins/Minerals IVPB 11/02/18 09:30 Not Given 10 ml/ Sodium Chloride ONCE ONE Folic Acid 1 mg/ Thiamine HCl 1,000 mls @ 125 mls/hr 11/03/18 04:43 11/03/18 04:48 100 mg/ Multivitamins/Minerals IVPB 11/03/18 12:42 125 mls/hr 10 ml/ Sodium Chloride ONCE ONE Administration Ibuprofen 800 mg 11/04/18 00:41 11/04/18 00:49 Motrin - PO 11/04/18 00:42 800 mg ONCE ONE Administration Lorazepam 2 mg 11/01/18 19:53 11/01/18 20:38 Ativan - PO 11/01/18 19:54 Not Given ONCE ONE Lorazepam 2 mg 11/01/18 20:35 11/01/18 20:38 Ativan Injection - IM 11/01/18 20:36 2 mg ONCE ONE Administration Lorazepam 2 mg 11/02/18 20:50 11/02/18 20:53 Ativan Injection - IM 11/02/18 20:51 2 mg ONCE ONE Administration Lorazepam 2 mg 11/04/18 03:22 11/04/18 03:36 Ativan Injection - IM 11/04/18 03:23 2 mg ONCE ONE Administration Lorazepam 2 mg 11/04/18 04:21 11/04/18 04:34 Ativan Injection - IM 11/04/18 04:22 2 mg ONCE ONE Administration Quetiapine Fumarate 200 mg 11/01/18 23:45 11/02/18 00:11 Seroquel - PO 11/01/18 23:46 200 mg ONCE ONE Administration Quetiapine Fumarate 200 mg 11/04/18 00:46 11/04/18 00:50 Seroquel - PO 11/04/18 00:47 200 mg ONCE ONE Administration Medical Decision Making - Medical Decision Making ED Course: Several facilities called at 1930 on 11/03/18 Including [place], [facility], [facility], [facility] All facilities have said that there are no beds available and transfers are not done on weekends to psychiatric care 11/04/18 06:38 Patient severely agitated, broke bed. requiring repeated sedative medication doses *DC/Admit/Observation/Transfer Diagnosis at time of Disposition: Alcohol abuse, Cocaine abuse Psychosis Qualifiers: Psychosis type: unspecified psychosis type Qualified Code(s): F29 - Unspecified psychosis not due to a substance or known physiological condition - Discharge Dispostion Disposition: TRANSFER ACUTE CARE/OTHER HOSP Condition at time of disposition: Stable - Referrals - Patient Instructions - Post Discharge Activity
[2018-11-04] MEDS ORDERED: ENOXAPARIN NA (PORCINE) 40 MG/0.4 ML DISP.SYRIN SQ ONE (10:37)
[2018-11-04] MEDS: ENOXAPARIN NA (PORCINE) 40 MG/0.4 ML DISP.SYRIN SQ SCH (10:49)
--- NOTE | 2018-11-04 13:04 | PN ---
Teaching Attending Note Name of Resident: Anshul Pereyra ATTENDING PHYSICIAN STATEMENT I saw and evaluated the patient. I reviewed the resident's note and discussed the case with the resident. I agree with the resident's findings and plan as documented. SUBJECTIVE: Patient is lying in bed, events noted. OBJECTIVE: Vital Signs Temperature 98.0 F 11/04/18 07:55 Pulse Rate 78 11/04/18 07:55 Respiratory Rate 18 11/04/18 07:55 Blood Pressure 124/65 11/04/18 07:55 O2 Sat by Pulse Oximetry (%) 95 11/04/18 07:55 Patient refused physical exam. CBCD WBC 7.4 K/mm3 (4.0-10.0) 11/03/18 05:16 RBC 4.25 M/mm3 (4.00-5.60) 11/03/18 05:16 Hgb 13.3 GM/dL (11.7-16.9) 11/03/18 05:16 Hct 39.1 % (35.4-49) 11/03/18 05:16 MCV 92.1 fl (80-96) 11/03/18 05:16 MCHC 33.9 g/dl (32.0-35.9) 11/03/18 05:16 RDW 14.7 % (11.9-15.9) 11/03/18 05:16 Plt Count 270 K/MM3 (134-434) 11/03/18 05:16 MPV 7.9 fl (7.5-11.1) 11/03/18 05:16 CMP Sodium 141 mmol/L (136-145) 11/03/18 05:16 Potassium 3.7 mmol/L (3.5-5.1) 11/03/18 05:16 Chloride 105 mmol/L (98-107) 11/03/18 05:16 Carbon Dioxide 27 mmol/L (21-32) 11/03/18 05:16 Anion Gap 9 MMOL/L (8-16) 11/03/18 05:16 BUN 12 mg/dL (7-18) 11/03/18 05:16 Creatinine 0.7 mg/dL (0.55-1.3) 11/03/18 05:16 Creat Clearance w eGFR > 60 (>60) 11/03/18 05:16 Random Glucose 110 mg/dL (74-106) H 11/03/18 05:16 Calcium 9.0 mg/dL (8.5-10.1) 11/03/18 05:16 Total Bilirubin 0.4 mg/dL (0.2-1) 11/03/18 05:16 AST 40 U/L (15-37) H 11/03/18 05:16 ALT 34 U/L (13-61) 11/03/18 05:16 Alkaline Phosphatase 69 U/L (45-117) 11/03/18 05:16 Total Protein 6.5 g/dl (6.4-8.2) 11/03/18 05:16 Albumin 3.2 g/dl (3.4-5.0) L 11/03/18 05:16 Current Medications Generic Name Dose Route Start Last Admin Trade Name Freq PRN Reason Stop Dose Admin Enoxaparin Sodium 40 mg 11/02/18 10:00 11/04/18 10:49 Lovenox - SQ 40 mg DAILY AZAR Administration Lorazepam 2 mg 11/02/18 05:59 11/03/18 22:13 Ativan Injection - IVPUSH 2 mg Q4H PRN Administration AGITATION Home Medications Medication Instructions Recorded Allopurinol [Zyloprim -] 100 mg PO DAILY 11/02/18 Aspirin [ASA -] 81 mg PO DAILY 11/02/18 Atorvastatin Ca [Lipitor] 20 mg PO HS 11/02/18 Benztropine Mesylate 1 mg PO PRN 11/02/18 Clonazepam 0.5 mg PO DAILY 11/02/18 Cyclobenzaprine HCl 5 mg PO HS 11/02/18 D-Amphetamine Sulfate [DEXEDRINE 10 mg PO BID 11/02/18 SPANSULE (Nf) -] Divalproex [Depakote -] 500 mg PO TID 11/02/18 Doxepin HCl [Sinequan -] 25 mg PO HS 11/02/18 Lamotrigine [Lamictal -] 25 mg PO DAILY 11/02/18 Metoprolol Tartrate [Lopressor -] 50 mg PO BID 11/02/18 Pantoprazole Sodium [Protonix] 40 mg PO DAILY 11/02/18 Quetiapine Fumarate [Seroquel -] 200 mg PO HS 11/02/18 Tamsulosin HCl 0.4 mg PO DAILY 11/02/18 Venlafaxine HCl [Effexor -] 75 mg PO BID 11/02/18 ASSESSMENT AND PLAN: Patient is a 53 year old man with a PMHx of chronic, back [place] pain, htn, HLD, gout, schizoaffective disorder and bipolar disorder who presents with sister from home, who reported to her that he wanted to go to detox. The patient was released from [facility] 3 days ago who reports he drank alcohol and used marijuana and called his sister. The patient is verbally abusive, spitting and not engaging in conversation. # Acute Psychosis with acute intoxication and Polysubstance abuse .on Librium protocol patient continues to be paranoid and delusional and agitated. continues to make threatening statements about himself and family, patient has a poor insight. continue 1:1, waiting to transfer the patient to In-patient Psych facility. DVt px: Lovenox
[2018-11-04] MEDS ORDERED: chlordiazePOXIDE HCL 25 MG CAPSULE PO ONE (14:17)
[2018-11-04] MEDS ORDERED: IBUPROFEN 600 MG TABLET (FP) PO ONE ×2 (14:17→14:19)
[2018-11-04] MEDS ORDERED: TAMSULOSIN HCL 0.4 MG CAP PO ONE (14:17)
[2018-11-04] MEDS ORDERED: ATORVASTATIN CA 20 MG TABLET (FP) PO ONE (14:18)
[2018-11-04] MEDS ORDERED: ATORVASTATIN CA 10 MG TABLET (FP) ONE (14:20)
[2018-11-04] MEDS ORDERED: ALLOPURINOL 100 MG TABLET (FP) ONE (14:20)
[2018-11-04] MEDS ORDERED: TAMSULOSIN HCL 0.4 MG CAP ONE (14:20)
--- NOTE | 2018-11-04 14:20 | PDOC ---
*Physical Exam - Vital Signs Last Vital Signs Temp Pulse Resp BP Pulse Ox 98.0 F 70 18 122/66 98 11/04/18 12:00 11/04/18 12:00 11/04/18 12:00 11/04/18 12:00 11/04/18 12:00 ED Treatment Course - LABORATORY CBC & Chemistry Diagram: 11/03/18 05:16 11/03/18 05:16 - ADDITIONAL ORDERS Additional order review: 11/01/18 22:07 RBC 4.29 MCV 92.7 MCHC 34.1 RDW 14.7 MPV 8.4 Neutrophils % 54.5 Lymphocytes % 37.1 Monocytes % 7.1 Eosinophils % 0.5 Basophils % 0.8 - Medications Given in the ED: ED Medications Discontinued Medications Generic Name Dose Route Start Last Admin Trade Name Freq PRN Reason Stop Dose Admin Chlordiazepoxide HCl 50 mg 11/02/18 05:00 11/02/18 06:25 Librium - PO 11/02/18 23:01 Not Given [id number] AZAR Chlordiazepoxide HCl 50 mg 11/02/18 13:02 11/02/18 13:04 Librium - PO 11/02/18 13:03 50 mg ONCE ONE Administration Chlordiazepoxide HCl 50 mg 11/02/18 19:10 11/02/18 19:18 Librium - PO 11/02/18 19:11 50 mg ONCE ONE Administration Chlordiazepoxide HCl 50 mg 11/03/18 04:41 11/03/18 04:48 Librium - PO 11/03/18 04:42 50 mg ONCE ONE Administration Chlordiazepoxide HCl 50 mg 11/03/18 09:49 11/03/18 09:53 Librium - PO 11/03/18 09:50 50 mg ONCE ONE Administration Chlordiazepoxide HCl 50 mg 11/04/18 00:42 11/04/18 00:50 Librium - PO 11/04/18 00:43 50 mg ONCE STA Administration Diphenhydramine HCl 50 mg 11/01/18 20:52 11/01/18 21:22 Benadryl Injection - IM 11/01/18 20:53 50 mg ONCE ONE Administration Diphenhydramine HCl 50 mg 11/04/18 04:00 11/04/18 04:10 Benadryl Injection - IM 11/04/18 04:01 50 mg ONCE ONE Administration Haloperidol 5 mg 11/01/18 20:51 11/01/18 21:22 Haldol Injection (Fast Acting) - IM 11/01/18 20:52 5 mg ONCE ONE Administration Haloperidol 5 mg 11/02/18 20:51 11/02/18 20:53 Haldol Injection (Fast Acting) - IM 11/02/18 20:52 5 mg ONCE ONE Administration Haloperidol 10 mg 11/04/18 03:23 11/04/18 04:35 Haldol Injection (Fast Acting) - IM 11/04/18 03:24 Not Given ONCE ONE Haloperidol 5 mg 11/04/18 03:24 11/04/18 03:36 Haldol Injection (Fast Acting) - IM 11/04/18 03:25 5 mg ONCE ONE Administration Haloperidol 5 mg 11/04/18 04:21 11/04/18 04:34 Haldol Injection (Fast Acting) - IM 11/04/18 04:22 5 mg ONCE ONE Administration Folic Acid 1 mg/ Thiamine HCl 1,000 mls @ 125 mls/hr 11/02/18 01:31 11/02/18 04:05 100 mg/ Multivitamins/Minerals IVPB 11/02/18 09:30 Not Given 10 ml/ Sodium Chloride ONCE ONE Folic Acid 1 mg/ Thiamine HCl 1,000 mls @ 125 mls/hr 11/03/18 04:43 11/03/18 04:48 100 mg/ Multivitamins/Minerals IVPB 11/03/18 12:42 125 mls/hr 10 ml/ Sodium Chloride ONCE ONE Administration Ibuprofen 800 mg 11/04/18 00:41 11/04/18 00:49 Motrin - PO 11/04/18 00:42 800 mg ONCE ONE Administration Lorazepam 2 mg 11/01/18 19:53 11/01/18 20:38 Ativan - PO 11/01/18 19:54 Not Given ONCE ONE Lorazepam 2 mg 11/01/18 20:35 11/01/18 20:38 Ativan Injection - IM 11/01/18 20:36 2 mg ONCE ONE Administration Lorazepam 2 mg 11/02/18 20:50 11/02/18 20:53 Ativan Injection - IM 11/02/18 20:51 2 mg ONCE ONE Administration Lorazepam 2 mg 11/04/18 03:22 11/04/18 03:36 Ativan Injection - IM 11/04/18 03:23 2 mg ONCE ONE Administration Lorazepam 2 mg 11/04/18 04:21 11/04/18 04:34 Ativan Injection - IM 11/04/18 04:22 2 mg ONCE ONE Administration Lorazepam 4 mg 11/04/18 06:37 11/04/18 06:48 Ativan Injection - IM 11/04/18 06:38 4 mg ONCE ONE Administration Lorazepam 4 mg 11/04/18 06:48 11/04/18 06:52 Ativan Injection - IVPUSH 11/04/18 06:49 4 mg ONCE ONE Administration Lorazepam 6 mg 11/04/18 09:05 11/04/18 09:27 Ativan Injection - IM 11/04/18 09:06 Not Given ONCE ONE Midazolam HCl 2 mg 11/04/18 06:28 11/04/18 07:03 Versed - IVPUSH 11/04/18 06:29 Not Given ONCE ONE Quetiapine Fumarate 200 mg 11/01/18 23:45 11/02/18 00:11 Seroquel - PO 11/01/18 23:46 200 mg ONCE ONE Administration Quetiapine Fumarate 200 mg 11/04/18 00:46 11/04/18 00:50 Seroquel - PO 11/04/18 00:47 200 mg ONCE ONE Administration Medical Decision Making - Medical Decision Making 11/04/18 14:19 Received signout on patient awaiting psychiatric inpatient placement. Medically cleared. Patient has been calm and cooperative since last round of medications this morning around 6 AM, recently conversant and beginning to feel jittery again requesting another round of medications. Based on prior dosing of benzodiazepine , will give another dose of Ativan and Librium, patient will also be dosed with his baseline Lipitor, Flomax. Discussions with case management in progress, awaiting confirmation of available beds. *DC/Admit/Observation/Transfer Diagnosis at time of Disposition: Alcohol abuse, Cocaine abuse Psychosis Qualifiers: Psychosis type: unspecified psychosis type Qualified Code(s): F29 - Unspecified psychosis not due to a substance or known physiological condition - Discharge Dispostion Disposition: TRANSFER ACUTE CARE/OTHER HOSP Condition at time of disposition: Stable - Referrals - Patient Instructions - Post Discharge Activity
--- NOTE | 2018-11-04 16:00 | PN ---
Physical Exam: SUBJECTIVE: Patient seen. Patient refused examination OBJECTIVE: Vital Signs Period Temp Pulse Resp BP Sys/Gonzalez Pulse Ox Last 24 Hr 98.0 F-98.4 F 70-99 18-18 122-152/65-87 95-99 Unable to perform due to patient refusing. Active Medications Generic Name Dose Route Start Last Admin Trade Name Freq PRN Reason Stop Dose Admin Enoxaparin Sodium 40 mg 11/02/18 10:00 11/04/18 10:49 Lovenox - SQ 40 mg DAILY AZAR Administration Lorazepam 2 mg 11/02/18 05:59 11/03/18 22:13 Ativan Injection - IVPUSH 2 mg Q4H PRN Administration AGITATION ASSESSMENT/PLAN: 53 yo male with Acute Psychosis and polysubstance abuse -patient has not yet clinically/psychiatrically improved and is awaiting transfer to psychiatric facility Visit type - Emergency Visit Emergency Visit: No - New Patient This patient is new to me today: No - Critical Care Critical Care patient: No - Discharge Referral Referred to [facility] No
[2018-11-04 20:57] VITALS: BP 119/78; PULSE 96
[2018-11-04 21:08] VITALS: TEMP 98.7
[2018-11-05] MEDS ORDERED: chlordiazePOXIDE 5 MG CAPSULE PO SCH (05:00)
[2018-11-05] MEDS ORDERED: PIPERACILLIN/TAZOB 3.375 GM 3.375 GM/50 ML BAG IVPB ONE (05:06)
--- NOTE | 2018-11-05 08:06 | PN ---
Physical Exam: SUBJECTIVE: Patient seen. No acute complaints. OBJECTIVE: Vital Signs Period Temp Pulse Resp BP Sys/Gonzalez Pulse Ox Last 24 Hr 98.0 F-98.7 F 70-96 16-18 119-122/66-78 98-100 Refused physical exam. Active Medications Generic Name Dose Route Start Last Admin Trade Name Freq PRN Reason Stop Dose Admin Enoxaparin Sodium 40 mg 11/02/18 10:00 11/04/18 10:49 Lovenox - SQ 40 mg DAILY AZAR Administration ASSESSMENT/PLAN: 53 yo male with Acute Psychosis and polysubstance abuse -patient has not yet clinically/psychiatrically improved and is awaiting transfer to psychiatric facility -vitals are stable, not hypertensive -lovenox DVT prophylaxis while in the hospital -will d/w psychiatrist on status of transfer Visit type - Emergency Visit Emergency Visit: No - New Patient This patient is new to me today: No - Critical Care Critical Care patient: No
--- NOTE | 2018-11-07 06:07 | DS ---
Physical Exam: THIS DOCUMENT IS FOR 11/05 - 11/06 for when patient had left hospital NO ACUTE OVERNIGHT EVENTS REFUSED PHYSICAL EXAM HOSPITAL COURSE: Date of Admission:11/02/18 53 yo male with Acute Psychosis and polysubstance abuse -patient has not yet clinically/psychiatrically improved and was transferred to a psychiatric facility. Date of Discharge: 11/07/18 Minutes to complete discharge: 30 Discharge Summary Reason For Visit: ALCOHOL ABUSE PSYCHOSIS Condition: Stable - Instructions Referrals: Brit Russell MD [Primary Care Provider] - Disposition: PSYCH,CHRONIC HOSP - Home Medications Comprehensive Discharge Medication List: Ambulatory Orders Allopurinol [Zyloprim -] 100 mg PO DAILY 11/02/18 Aspirin [ASA -] 81 mg PO DAILY 11/02/18 Atorvastatin Ca [Lipitor] 20 mg PO HS 11/02/18 Benztropine Mesylate 1 mg PO PRN 11/02/18 Clonazepam 0.5 mg PO DAILY 11/02/18 Cyclobenzaprine HCl 5 mg PO HS 11/02/18 D-Amphetamine Sulfate [DEXEDRINE SPANSULE (Nf) -] 10 mg PO BID 11/02/18 Divalproex [Depakote -] 500 mg PO TID 11/02/18 Doxepin HCl [Sinequan -] 25 mg PO HS 11/02/18 Lamotrigine [Lamictal -] 25 mg PO DAILY 11/02/18 Metoprolol Tartrate [Lopressor -] 50 mg PO BID 11/02/18 Pantoprazole Sodium [Protonix] 40 mg PO DAILY 11/02/18 Quetiapine Fumarate [Seroquel -] 200 mg PO HS 11/02/18 Tamsulosin HCl 0.4 mg PO DAILY 11/02/18 Venlafaxine HCl [Effexor -] 75 mg PO BID 11/02/18 This patient is new to me today: No Emergency Visit: No Critical Care patient: No - Discharge Referral Referred to [facility] No
== END 2018-11-04 21:44 ==
LOC: JER 18:56 → JERBED 11-02 00:37
PROVIDERS: ADMIT Internal Medicine; ATTEND Internal Medicine
PROC: 3E033GC Introduction of Other Therapeutic Substance into Peripheral Vein, Percutaneous Approach (ICD-10-PCS; principal; 2018-11-02)
PROC: 3E023GC Introduction of Other Therapeutic Substance into Muscle, Percutaneous Approach (ICD-10-PCS; 2018-11-02)
PROC: 3E013GC Introduction of Other Therapeutic Substance into Subcutaneous Tissue, Percutaneous Approach (ICD-10-PCS; 2018-11-02)
DX: F10.159 Alcohol abuse with alcohol-induced psychotic disorder, unspecified (principal); F10.129 Alcohol abuse with intoxication, unspecified; F29 Unspecified psychosis not due to a substance or known physiological condition; F06.2 Psychotic disorder with delusions due to known physiological condition; R45.850 Homicidal ideations; E87.6 Hypokalemia; I10 Essential (primary) hypertension; E66.9 Obesity, unspecified; Z68.38 Body mass index [BMI] 38.0-38.9, adult; M10.9 Gout, unspecified; F31.9 Bipolar disorder, unspecified; F20.0 Paranoid schizophrenia; F14.10 Cocaine abuse, uncomplicated
CPT/HCPCS: 36415; 71045-TC-FY; 80053; 80164; 80307; 81003; 81015; 83690; 85025; 85027; 93005; 93010; 99285-25; G0378; J7030

== ENCOUNTER 2019-02-11 06:05 | Day surgery (SDC) | payer OTHER ==
[2019-02-10 12:41] VITALS: BMI 59.1
[2019-02-11] MEDS ORDERED: DEXAMETHASONE SOD PHOSPHATE 4 MG/1 ML VIAL ONE ×2 (07:22→13:37)
[2019-02-11] MEDS ORDERED: PROPOFOL 20 ML ONE ×4 (07:23→13:16)
[2019-02-11] MEDS ORDERED: MIDAZOLAM HCL 2 MG/2 ML SINGLE DOSE VIAL ONE ×2 (07:23→13:16)
[2019-02-11] MEDS ORDERED: ePHEDrine SULFATE 50 MG/1 ML AMPULE ONE (07:24)
[2019-02-11] MEDS ORDERED: ONDANSETRON 4 MG/2 ML VIAL IVPUSH PRN (08:06)
[2019-02-11] MEDS ORDERED: oxyCODONE HCL 5 MG TABLET PO PRN ×2 (08:06)
[2019-02-11] MEDS ORDERED: ACETAMINOPHEN 1000 MG/100 ML VIAL (NON FORMULARY) IVPB ONE (08:13)
--- NOTE | 2019-02-11 08:14 | HP ---
History & Physical Update - History History: No Change - Physical Physical: No Change - Assessment Assessment: No Change - Plan Plan: No Change
[2019-02-11] MEDS ORDERED: DEXTROSE 5%-0.45% SALINE 1,000 ML IV SCH (08:15)
[2019-02-11] MEDS ORDERED: IBUPROFEN 800 MG/8 ML IJ IVPB SCH (08:15)
[2019-02-11] MEDS ORDERED: LACTATED RINGERS SOLUTION 1,000 ML IV SCH (08:15)
[2019-02-11] MEDS ORDERED: SUCCINYLCHOLINE CHLORIDE 200 MG/10 ML VIAL ONE (13:16)
[2019-02-11] MEDS ORDERED: ceFAZolin 2 GRAM PREMIX BAG IVPB ONE (13:30)
[2019-02-11] MEDS ORDERED: KETOROLAC TROMETHAMINE 30 MG/1 ML VIAL ONE (13:37)
[2019-02-11] MEDS ORDERED: ceFAZolin SODIUM 1 GM VIAL ONE (13:37)
[2019-02-11] MEDS ORDERED: LIDOCAINE HCL/PF 2% SDV 5ML VIAL ONE (13:37)
[2019-02-11 17:06] VITALS: BP 132/84; PULSE 73; TEMP 97.8
--- NOTE | 2019-02-20 18:26 | OP ---
DATE OF OPERATION: 02/11/2019 PREOPERATIVE DIAGNOSIS: Urinary retention with benign prostatic hypertrophy. POSTOPERATIVE DIAGNOSIS: Urinary retention with benign prostatic hypertrophy. PROCEDURE PERFORMED: GreenLight laser prostatectomy. SURGEON: Jerald Keating M.D. ANESTHESIA: General. ESTIMATED BLOOD LOSS: Minimal. SPECIMENS: None. DRAINS: A Saravia catheter. PREOPERATIVE INDICATIONS: The patient is a 53-year-old male with history of BPH, who is now in urinary retention. He has failed trails of void. He comes today for GreenLight laser. DESCRIPTION OF PROCEDURE: The patient was brought to the OR and placed on the table in the supine position, given general anesthesia and IV antibiotics, and placed in the modified lithotomy position. The groin was prepped and draped sterilely. Cystoscopy was performed. The distal urethra appeared to be unremarkable. The sphincter was seen. The prostatic tissue was obstructive. In the bladder, there were some trabeculations, but no tumor or stones were seen. Both UOs were visualized. Using the GreenLight laser, obstructive prostatic tissue from the bladder neck to the area just proximal to the verumontanum was vaporized. This effected an open prostatic fossa. No injuries to the sphincter or the bladder were noted. A Saravia catheter was then placed in the bladder, and the patient was woken up. JERALD KEATING M.D. [id number]
== END 2019-02-11 16:20 | disposition home or self-care (01) ==
LOC: JASU-SURG 06:05
PROVIDERS: ATTEND Urology
PROC: 0VT08ZZ Resection of Prostate, Via Natural or Artificial Opening Endoscopic (ICD-10-PCS; principal; 2019-02-11 07:30)
DX: N40.1 Benign prostatic hyperplasia with lower urinary tract symptoms (principal); R33.9 Retention of urine, unspecified
CPT/HCPCS: 94760

== ENCOUNTER 2022-05-19 04:23 | Day surgery (SDC) | payer OTHER ==
[2022-05-17 12:01] VITALS: BMI 59.1
[2022-05-19] MEDS ORDERED: LIDOCAINE HCL 1%, 10 MG/ML (20ML VIAL) ONE (13:20)
[2022-05-19] MEDS ORDERED: oxyCODONE HCL 5 MG TABLET PO PRN (14:21)
[2022-05-19] MEDS ORDERED: ONDANSETRON 4 MG/2 ML VIAL IVPUSH PRN (14:21)
[2022-05-19] MEDS ORDERED: ACETAMINOPHEN 1000 MG/100 ML BAG IVPB ONE (14:24)
[2022-05-19] MEDS ORDERED: PROPOFOL 20 ML ONE (14:24)
[2022-05-19] MEDS ORDERED: MIDAZOLAM HCL 2 MG/2 ML SINGLE DOSE VIAL ONE (14:24)
[2022-05-19] MEDS ORDERED: IBUPROFEN 800 MG/8 ML IJ IVPB SCH (14:30)
[2022-05-19] MEDS ORDERED: LACTATED RINGERS SOLUTION 1,000 ML IV SCH (14:30)
[2022-05-19] MEDS ORDERED: DEXTROSE 5%-0.45% SALINE 1,000 ML IV SCH (14:30)
[2022-05-19] MEDS ORDERED: BUPIVACAINE HCL/PF 0.5% (5MG/ML) 10 ML VIAL ONE (14:39)
[2022-05-19] MEDS ORDERED: ceFAZolin SODIUM 1 GM VIAL IVPB ONE (14:56)
[2022-05-19] MEDS ORDERED: LIDOCAINE HCL 1%, 10 MG/ML (20ML VIAL) INF ONE ×2 (15:04)
[2022-05-19] MEDS ORDERED: ACETAMINOPHEN INJECTION 100 ML IVPB ONE (15:47)
[2022-05-19 17:16] VITALS: BP 154/96; PULSE 62; RESP 18; TEMP 97.6
== END 2022-05-19 19:00 | disposition home or self-care (01) ==
LOC: JASU-SURG 04:23
PROVIDERS: ATTEND Urology
PROC: 0JPT0MZ Removal of Stimulator Generator from Trunk Subcutaneous Tissue and Fascia, Open Approach (ICD-10-PCS; 2022-05-19)
PROC: 01PY0MZ Removal of Neurostimulator Lead from Peripheral Nerve, Open Approach (ICD-10-PCS; principal; 2022-05-19 14:30)
DX: T83.89XA Other specified complication of genitourinary prosthetic devices, implants and grafts, initial encounter (principal)
CPT/HCPCS: 88300-TC; 94760

== ENCOUNTER 2024-01-22 21:49 | Inpatient (IN) | payer OTHER ==
[2024-01-22 22:56] VITALS: BMI 32.1
[2024-01-22] MEDS ORDERED: BISMUTH SUBSALICYLATE 524 MG/30 ML PO PRN (23:34)
[2024-01-22] MEDS ORDERED: MAG HYDROX/AL HYDROX/SIMETH 30 ML UNIT-DOSE CUP PO PRN (23:34)
[2024-01-22] MEDS ORDERED: IBUPROFEN 400 MG TABLET (FP) PO PRN (23:34)
[2024-01-22] MEDS ORDERED: ACETAMINOPHEN 325 MG TABLET (FP) PO PRN (23:34)
[2024-01-22] MEDS ORDERED: LOPERAMIDE HCL 2 MG CAPSULE PO PRN (23:34)
[2024-01-22] MEDS ORDERED: DICYCLOMINE HCL 10 MG CAPSULE PO PRN (23:34)
[2024-01-22] MEDS ORDERED: POLYETHYLENE GLYCOL (HEALTHYLAX) 3350 17 GM PACKET PO PRN (23:34)
[2024-01-22] MEDS ORDERED: ONDANSETRON *ODT* 4 MG TABLET SL PRN (23:34)
[2024-01-23] MEDS: diazePAM 5 MG TABLET PO SCH (00:10)
[2024-01-23] MEDS: ASPIRIN 81 MG CHEWABLE TABLETS PO SCH (09:32)
[2024-01-23] MEDS: TAMSULOSIN HCL 0.4 MG CAP PO SCH (09:32)
[2024-01-23] MEDS: PRENATAL VITAMINS W/ FOLIC ACID TABLET (FP) PO SCH (09:32)
[2024-01-23] MEDS: PANTOPRAZOLE 40 MG TABLET PO SCH (09:32)
[2024-01-23] MEDS: guaiFENesin 600 MG TABLET.ER (FP) PO PRN (09:37)
[2024-01-23] MEDS: BENZOCAINE/MENTHOL (CHLORASEPTIC ) LOZENGE MM PRN (09:40)
[2024-01-23] MEDS: GABAPENTIN 100 MG CAPSULE PO SCH (09:46)
[2024-01-23] MEDS: lamoTRIgine 25 MG TABLET PO SCH (10:25)
[2024-01-23] MEDS: ALLOPURINOL 100 MG TABLET (FP) PO SCH (10:26)
[2024-01-23] MEDS: ATOMOXETINE HCL 40 MG CAPSULE PO SCH (10:26)
[2024-01-23 11:24] LABS: HEMATOCRIT 37.4 % (35.4-49); HEMOGLOBIN 12.4 GM/dL (11.7-16.9); MCH 30.2 pg (25.7-33.7); MCHC 33.1 g/dl (32.0-35.9); MEAN CELL VOLUME 91.3 fl (80-96); MEAN PLT VOLUME 7.5 fl (7.5-11.1); PLATELET COUNT 327 10^3/uL (134-434); RDW 13.6 % (11.9-15.9); WHITE BLOOD COUNT 6.9 K/mm3 (4.0-10.0)
[2024-01-23 12:07] LABS: POTASSIUM 4.2 mmol/L (3.5-5.1)
[2024-01-23 12:09] LABS: CALCIUM 9.4 mg/dL (8.5-10.1)
[2024-01-23 12:10] LABS: BLOOD UREA NITROGEN 6.8 mg/dL (7-18)
[2024-01-23 12:13] LABS: BILIRUBIN,TOTAL 0.4 mg/dL (0.2-1); CREATININE 0.6 mg/dL (0.55-1.3)
[2024-01-23] MEDS: NICOTINE POLACRILEX 2 MG GUM BUC PRN (13:44)
[2024-01-23] MEDS: P-EPHED 60MG/TRIPROLIDI 2.5MG TABLET PO PRN (16:25)
[2024-01-23] MEDS: METHOCARBAMOL 500 MG TABLET PO PRN (17:25)
[2024-01-23] MEDS ORDERED: MELATONIN 5 MG TABLETS PO SCH (22:00)
[2024-01-23] MEDS: ATORVASTATIN CA 20 MG TABLET (FP) PO SCH (22:49)
[2024-01-23] MEDS: QUEtiapine FUMARATE 400 MG TABLET PO SCH (22:49)
[2024-01-23] MEDS: THIAMINE 100 MG TABLET PO SCH (22:49)
[2024-01-23] MEDS: BENZONATATE 200 MG CAPSULE PO PRN (22:52)
[2024-01-23] MEDS: lamoTRIgine 100 MG TABLET PO SCH (23:07)
[2024-01-24] MEDS: diazePAM 5 MG TABLET PO SCH (05:49)
[2024-01-24] MEDS: IBUPROFEN 600 MG TABLET (FP) PO PRN (05:50)
[2024-01-24] MEDS: metoPROLOL SUCCINATE 25 MG TAB.SR.24H (FP) PO SCH (10:08)
[2024-01-24] MEDS: NICOTINE 21 MG/24 HOURS TOPICAL PATCH TD SCH (14:59)
[2024-01-24] MEDS: MAGNESIUM HYDROX 2400MG/30ML ORAL SUSPENSION 30 ML CUP PO PRN (22:15)
[2024-01-25] MEDS: diazePAM 5 MG TABLET PO SCH (05:42)
[2024-01-25 09:05] VITALS: RESP 18
[2024-01-25] MEDS: TOLNAFTATE 1% CREAM 15 GM TUBE TP SCH (09:30)
[2024-01-25] MEDS: [UNRECOGNIZED DRUG - OTHER] IM SCH (11:44)
[2024-01-25] MEDS: PALIPERIDONE PALMITATE 117 MG/0.75 ML IM SCH (11:44)
[2024-01-25] MEDS: diazePAM 5 MG TABLET PO PRN (20:03)
[2024-01-26] MEDS: diazePAM 5 MG TABLET PO ONE (05:38)
[2024-01-26 09:35] VITALS: BP 137/87; PULSE 90; TEMP 97.5
== END 2024-01-26 10:20 | disposition home or self-care (01) | DRG 897 ==
LOC: YASAS 21:49 → Y6N 23:51
PROVIDERS: ADMIT Allergy & Immunology; ATTEND Surgery
PROC: HZ2ZZZZ Detoxification Services for Substance Abuse Treatment (ICD-10-PCS; principal; 2024-01-22)
DX: F10.230 Alcohol dependence with withdrawal, uncomplicated (principal); F14.20 Cocaine dependence, uncomplicated; F19.282 Other psychoactive substance dependence with psychoactive substance-induced sleep disorder; F17.210 Nicotine dependence, cigarettes, uncomplicated; F19.24 Other psychoactive substance dependence with psychoactive substance-induced mood disorder; F25.9 Schizoaffective disorder, unspecified; F31.9 Bipolar disorder, unspecified; E78.5 Hyperlipidemia, unspecified; I10 Essential (primary) hypertension; K21.9 Gastro-esophageal reflux disease without esophagitis; M10.9 Gout, unspecified; N40.0 Benign prostatic hyperplasia without lower urinary tract symptoms; B35.3 Tinea pedis
CPT/HCPCS: 36415; 80053; 82962; 85027; 86780; 93005; 93010; 99283-25